=== PATIENT | female | born 1975 | race Caucasian/White ===

== ENCOUNTER 2020-11-25 09:01 | Emergency (ER) | payer MEDICAID, SELFPAY ==
[2020-11-25 09:05] VITALS: BP 154/95; PULSE 85; RESP 17; TEMP 35.8; O2SAT 96; BMI 51.7
--- NOTE | 2020-11-25 09:15 | ED.DCSUM_ITS ---
History of Present Illness Chief Complaint: Headache Informant: Patient Narrative: 44-year-old female presenting with headache. Patient states she started getting headaches after she had COVID-19 in September. She states she has had a few telehealth visits with a tell her Tylenol and ibuprofen and there is nothing else they can do. She has not had any referral to neurology or any other specialist. She is not had blood work done. She states that she has not had a CAT scan of her brain. She reports light sensitivity and sound sensitivity. She also reports nausea. She denies paresthesias, visual complaints, lightheadedness, dizziness. Past Medical History - Allergies and Home Meds Allergies/Adverse Reactions: Allergies cat dander Allergy (Verified 11/25/20 09:04) Itching nalbuphine [From Nubain] Allergy (Verified 11/25/20 09:04) Anaphylaxis Primary Care Physician: Ralph Zhang III, MD [Primary Care Provider] - Prior records reviewed: Yes Past Medical History: - - Diabetes hypertension, GERD Surgical History: noncontributory Lives: Alone Smoking Status: Never smoker Alcohol: None Drugs: None Review of Systems General: Denies: Chills, Fever, Sweats Eyes: Denies: Visual changes - bilaterally, Diplopia ENT: Denies: Rhinorrhea, Sore throat Cardiovascular: Denies: Chest pain, Palpitations Respiratory: Denies: Dyspnea, Cough, Dyspnea on exertion Gastrointestinal: Reports: Nausea. Denies: Abdominal pain, Vomiting, Diarrhea Genitourinary: Denies: Dysuria, Hematuria, Frequency Musculoskeletal: Denies: Back pain, Extremity Pain Skin: Denies: Rash, Wounds Neurological: Reports: Headache. Denies: Parasthesia, Numbness Psych: Denies: Depression, Anxiety Physical Exam Vital Signs/Narrative: Vital Signs Temp Pulse Resp BP Pulse Ox 11/25/20 09:05 96.4 F L 85 17 154/95 H 96 Inital Vital Signs reviewed: Yes General: Obese, No Acute Distress Head: Normocephalic, Atraumatic Eyes: Perrl, EOMI ENT: Moist mucous membranes, No rhinorrhea Cardiovascular: Regular rate, Regular rhythm Skin: Normal color, No rash. Negative for: Cyanosis, Diaphoresis Neurological: Alert, Oriented x3, Cranial nerves II-XII grossly intact, - - No focal neurologic deficits or lateralizing signs or symptoms. Psychological: Normal affect, Normal Mood Diagnostic/Tx/Re-eval - Medical Decision Making 44-year-old female presenting for headaches that she is had since she had COVID- 19 in September. Patient states these are intermittent and feel like pressure. She is seen online telehealth physicians that tell her that there is nothing they can do. She has not had any blood work or imaging. I did obtain blood work today and other than some mild hyperglycemia without an anion gap it is fairly normal. Patient had CT of the brain which was negative. Patient treated with Reglan and Benadryl and her headache is resolved. Patient given follow-up with neurology. Patient has a doctor's appointment with her physician on the . She is discharged home in stable condition. Impression: 1. Headache ED Disposition - Plan for ED Patient: Disposition: Home or Assisted Living Instructions: ED Headache Unspecified Referrals: Ralph Zhang III, MD [Primary Care Provider] - Clinton Nieto MD [STAFF PHYSICIAN] -
--- NOTE | 2020-11-25 09:43 | CT_ITS ---
STUDY: CT BRAIN WITHOUT CONTRAST REASON FOR EXAM: Female, 44 years old. Pain. Nonspecific headaches following Covid. RADIATION DOSAGE (If Supplied By Facility): CTDIvol = ( 44.99 ) mGy, DLP = ( 779.24 ) mGycm TECHNIQUE: Transaxial CT imaging of the brain was performed without administration of intravenous contrast material. Individualized dose optimization techniques were used for this CT. COMPARISON: No relevant priors. FINDINGS: Normal soft tissue structures. Normal calvarium. Normal size ventricles and extra-axial spaces for the patient''s age. Normal white matter tracts of the cerebral hemispheres. Normal basal ganglia and thalami. Normal brainstem. Normal cerebellum. There is no intracranial hemorrhage. There are no findings of an acute ischemic infarction. Normal visualized paranasal sinuses. CT/Brain/Head without Contrast IMPRESSION: Normal unenhanced CT scan of the brain. Electronically Signed: Winston Palacios MD at 10:40 EDT , Service support ,
[2020-11-25] MEDS: DiphenhydrAMINE 50 MG/ML Syringe 25 MG IV (09:57)
[2020-11-25] MEDS: Metoclopramide 10 MG/2 ML Vial IV (09:59)
[2020-11-25] MEDS: 0.9% Normal Saline 1,000 ML 999 ML IV (10:00)
[2020-11-25 10:05] LABS: Absolute Lymphocyte Count 2.46 X10^3/uL (0.83-4.51); Absolute Neutrophil Count 6.4 X10^3/uL (2.0-7.7); Basophil# 0.04 X10^3/uL; Basophil% 0.4 % (0-1); Eosinophil# 0.11 X10^3/uL; Eosinophils% 1.1 % (0-5); Hematocrit 43.9 % (37-47); Hemoglobin 14.3 g/dL (12.0-15.0); Lymphocyte # 2.46 X10^3/ul (4.0); Lymphocyte % 25.3 % (19-41); Mean Corp Hgb Conc 32.6 g/dL (32-36); Mean Corpuscular Hgb 29.8 pg (27.0-32.0); Mean Corpuscular Volume 91.5 fL (81-99); Mean Platelet Vol. 9.8 fl (6.2-12.0); Monocyte# 0.75 X10^3/uL; Monocyte% 7.7 % (0-10); NRBC Flagged by Analyzer 0 % (0-5); Neutrophil # 6.35 X10^3/uL (2.7-7.7); Neutrophil % 65.2 % (47-70); Platelet Count 272 K/mm3 (150-450); RBC Distribution Width CV 13.2 % (11.6-14.6); RBC Distribution Width SD 44.3 fl (35.1-43.9); White Blood Count 9.7 K/mm3 (4.4-11.0)
[2020-11-25 10:23] LABS: ALB/GLOB Ratio 0.8 RATIO (0.9-2.4); AST(SGOT) 40 U/L (15-37); Alanine Aminotransfer ALT/SGPT 53 U/L (13-56); Albumin, Serum 3.4 g/dL (3.2-5.0); Alkaline Phosphatase 81 U/L (45-117); Anion Gap 4 (5-15); BUN 10 mg/dL (7-18); BUN/Creat Ratio 14.2 RATIO (10-20); Calcium,Total 10.1 mg/dL (8.5-10.1); Chloride 101 mmol/L (98-107); Creatinine, Serum 0.71 mg/dL (0.55-1.02); EST Glomerular Filtration Rate 94 mL/min (>60); Est Glom Filt Rate - Afr Amer 114 mL/min (>60); Globulin 4.3 g/dL (2.2-4.2); Glucose 295 mg/dL (74-106); Potassium 4.4 mmol/L (3.5-5.1); Protein, Total 7.7 g/dL (6.4-8.2); Sodium Level 133 mmol/L (136-145)
[2020-11-25 11:09] VITALS: BP 129/80; PULSE 69; RESP 16; O2SAT 98
== END 2020-11-25 11:31 | disposition home or self-care (01) ==
PROVIDERS: Emergency Provider Student in an Organized Health Care Education/Training Program; PCP Family Medicine
DX: R51.9 Headache, unspecified (principal); E11.9 Type 2 diabetes mellitus without complications; I10 Essential (primary) hypertension; K21.9 Gastro-esophageal reflux disease without esophagitis; E66.9 Obesity, unspecified; Z79.84 Long term (current) use of oral hypoglycemic drugs; Z79.899 Other long term (current) drug therapy
CPT/HCPCS: 70450; 80053; 85025; 96361; 96374; 96375; 99283; J7030